=== PATIENT | male | born 1935 | race Caucasian/White ===

== ENCOUNTER 2017-07-26 23:46 | Emergency (ER) | payer MEDICARE ==
[~2017-07-26] VITALS: Ht 185.4 cm; Wt 82.0 kg
[~2017-07-26 23:46] MED LIST: ACET325 PO; ALBU.5I INH; ANTI25TA2 PO; ATOR20TA42 PO; DOCU1CAP39 PO; FLUO20TA20 PO; GALA4 PO; LISI-363 PO; [UNRECOGNIZED DRUG - CODE]
[2017-07-26 23:54] VITALS: BP 181/87; PULSE 73; RESP 18; TEMP 98.2; O2SAT 96
--- NOTE | 2017-07-27 01:48 | PD ---
HPI Chief Complaint: Laceration/Skin Injury Time Seen by Provider: 01:12 Travel History International Travel<30 days: No Contact w/Intl Traveler<30days: No Traveled to known affect area: No History of Present Illness HPI 81-year-old white male presents emergency department accompanied by his son for evaluation of a left hand skin tear. Patient is in a SNF. He had caught his hand on a sharp object causing a skin tear. The patient was advised to come to the ER for wound care. Patient is up-to-date with immunizations. Symptoms are mild. No alleviating factors. Exacerbated by trauma. Patient denies any injury to his head, neck or back. No recent illness. 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) Musculoskeletal: No Neurologic: Yes Psychiatric: No Reproductive: No Respiratory: No Migraines: No Seizures: No Thyroid Disease: No Tetanus Vaccination: < 5 Years Influenza Vaccination: Yes Past Surgical History Abdominal Surgery: No AICD: No Cardiac Surgery: No Ear Surgery: No Endocrine Surgery: No Eye Surgery: Yes Genitourinary Surgery: No Gynecologic Surgery: No Joint Replacement: No Oral Surgery: No Pacemaker: No Thoracic Surgery: No Other Surgery: Yes (Craniotomy for intracerebral bleed) Social History Alcohol Use: No Tobacco Use: No Substance Use: No Allergies-Medications (Allergen,Severity, Reaction): Coded Allergies: lorazepam (Unverified Allergy, Intermediate, Confusion, 07/26/17) Reported Meds & Prescriptions Reported Meds & Active Scripts Active Reported Mucomyst 20% Oral (30 Ml) (Acetylcysteine) 30 Ml Soln 30 Ml .XX Q2 PRN Tylenol (Acetaminophen) 325 Mg Tab 650 Mg PO Q4H PRN Colace 100 Mg Cap (Docusate Sodium) 100 Mg Cap Mg PO BID Proventil Conc Ud 0.5% (2.5 Mg/0.5 Ml) (Albuterol Sulfate) 2.5 Mg/0.5 Ml Inha 2.5 Mg INH Q4 PRN Galantamine Hydrobromide ER (Galantamine Hydrobromide) 8 Mg Cap 16 Mg PO DAILY Antivert (Meclizine HCl) 25 Mg Tab 25 Mg PO TID Lipitor (Atorvastatin Calcium) 20 Mg Tab 20 Mg PO DAILY Lisinopril 20 Mg Tab 10 Mg PO DAILY HOLD FOR SYSTOLIC BP BELOW 120 Fluoxetine Hcl (Fluoxetine HCl) 20 Mg Cap 10 Mg PO DAILY Review of Systems General / Constitutional: No: Fever Eyes: No: Visual changes HENT: No: Headaches Cardiovascular: No: Chest Pain or Discomfort Respiratory: No: Shortness of Breath Gastrointestinal: No: Abdominal Pain Genitourinary: No: Dysuria Musculoskeletal: No: Arthralgias, Pain Skin: Positive Other (Skin tear), No Rash Neurologic: No: Weakness Psychiatric: No: Depression Endocrine: No: Polydipsia Hematologic/Lymphatic: No: Easy Bruising Physical Exam Narrative GENERAL: This is a well-nourished, well-developed patient, in no apparent distress. SKIN: Patient has a skin tear to the left distal forearm into the hand. This appears to be superficial in nature. There is no suturable laceration. No active bleeding. HEAD: Atraumatic. Normocephalic. EYES: PERRL, EOMI, no discharge or injection. No scleral icterus. EARS: Clear NOSE: Nasal turbinates appear normal. THROAT: Mucosa pink and moist. Airway patent. NECK: Trachea midline. supple, moves head freely. LUNGS: Clear to auscultation. CV: Regular in rhythm. ABDOMEN: Soft nontender. EXT: No clubbing cyanosis or edema. Data Data Last Documented VS Vital Signs Date Time Temp Pulse Resp B/P (MAP) Pulse Ox O2 Delivery O2 Flow Rate FiO2 07/26/17 23:54 98.2 73 18 181/87 (118 96 MDM Medical Decision Making Medical Screen Exam Complete: Yes Emergency Medical Condition: Yes Medical Record Reviewed: Yes Differential Diagnosis MDM: High Differential diagnoses: Fracture, sprain, strain, dislocation, contusion, neurovascular injury, skin tear Narrative Course Patient's wound is cleansed and Steri-Stripped by the nursing staff. There is no suturable laceration. This is left forearm/hand skin tear Diagnosis Primary Impression: left forearm/hand skin tear Patient Instructions: General Instructions Additional Instructions: Rest. Elevation. Keep clean and dry. Steri-Strips for the next week. Dressing changes every 2 days. Return to the ER if any problems. Recheck with the nurse or doctor at your facility in the next 2 days. Med/Other Pt SpecificInfo: Wound Care Disposition: 01 DISCHARGE HOME Condition: Stable Garcia Hdz Jul 27, 2017 01:48
== END 2017-07-27 02:26 | disposition home or self-care (01) ==
LOC: NEPD 23:46
DX: S61.412A Laceration without foreign body of left hand, initial encounter (principal); E78.00 Pure hypercholesterolemia, unspecified; I10 Essential (primary) hypertension; X58.XXXA Exposure to other specified factors, initial encounter
CPT/HCPCS: 99282